=== PATIENT | male | born 1965 | race Caucasian/White ===

== ENCOUNTER 2018-02-02 16:39 | Inpatient (IN) | payer OTHER ==
[2018-02-02 17:20] VITALS: BMI 20.5
[2018-02-02] MEDS ORDERED: MELATONIN 5 MG TABLETS PO PRN (22:00)
--- NOTE | 2018-02-02 22:49 | HP ---
CIWA Score - CIWA Score Nausea/Vomitin Muscle Tremors: 5 Anxiety: 5 Agitation: 5 Paroxysmal Sweats: 3 Orientation: 1-Uncertain about Date Tacttile Disturbances: 3-Moderate Itch/Numb/Burn Auditory Disturbances: 0-None Visual Disturbances: 0-None Headache: 4-Moderately Severe CIWA-Ar Total Score: 29 Admission ROS BHS - HPI Chief Complaint: I CANT DO IT ANYMORE. I NEED HELP Allergies/Adverse Reactions: Allergies Allergy/AdvReac Type Severity Reaction Status Date / Time No Known Allergies Allergy Verified 02/02/18 22:43 History of Present Illness: 52 Y.O. MALE WITH LONG HX/O POLYSUBSTANCE ABUSE HERE FOR ALCOHOL DETOX. REPORTS LAST DETOX [facility]. REFERRED BY [facility] AFTER PRESENTING THERE FOR C/O WITHDRAWAL SX'S. LONGEST CLEAN TIME 6 MONTHS. STATES ON RX TRAMADOL BUT HAS NOT TAKEN IN 5 DAYS Exam Limitations: No Limitations - Ebola screening Have you traveled outside of the country in the last 21 days: No Have you had contact with anyone from an Ebola affected area: No Have you been sick,other than usual withdrawal symptoms: No Do you have a fever: No - Review of Systems Constitutional: Chills, Loss of Appetite, Malaise, Night Sweats, Changes in sleep, Unintentional Wgt. Loss EENT: reports: Dental Problems (POOR DENTITION) Respiratory: reports: Cough Cardiac: reports: No Symptoms Reported GI: reports: Poor Appetite, Poor Fluid Intake, Abdominal cramping : reports: Other (HESITANCY) Musculoskeletal: reports: Back Pain, Joint Pain Integumentary: reports: No Symptoms Reported Neuro: reports: Headache, Tremors Endocrine: reports: No Symptoms Reported Hematology: reports: No Symptoms Reported Psychiatric: reports: Anxious, Depressed, other (ON WELLBUTRIN AND KLONOPINS) Other Systems: Reviewed and Negative Patient History - Patient Medical History Hx Anemia: No Hx Asthma: No Hx Chronic Obstructive Pulmonary Disease (COPD): Yes (EMPHYSEMA) Hx Cancer: No Hx Cardiac Disorders: No Hx Congestive Heart Failure: No Hx Hypertension: No Hx Hypercholesterolemia: No Hx Pacemaker: No HX Cerebrovascular Accident: No Hx Seizures: No Hx Dementia: No Hx Diabetes: No Hx Gastrointestinal Disorders: No Hx Liver Disease: No Hx Genitourinary Disorders: No Hx Sexually Transmitted Disorders: No Hx Renal Disease (ESRD): No Hx Thyroid Disease: No Hx Human Immunodeficiency Virus (HIV): No Hx Hepatitis C: No Hx Depression: Yes Hx Suicide Attempt: No Hx Bipolar Disorder: Yes Hx Schizophrenia: No Other Medical History: ANXIETY - Patient Surgical History Other Surgical History: TONSILLECTOMY Anesthesia Reaction: No - PPD History Previous Implant?: Yes Documented Results: Negative w/o proof Implanted On Prior R Admission?: No PPD to be Administered?: Yes - Smoking Cessation Smoking history: Current every day smoker Have you smoked in the past 12 months: Yes Aproximately how many cigarettes per day: 20 Cigars Per Day: 0 Hx Chewing Tobacco Use: No Initiated information on smoking cessation: Yes 'Breaking Loose' booklet given: 02/02/18 - Substance & Tx. History Hx Alcohol Use: Yes Hx Substance Use: Yes Substance Use Type: Alcohol, Heroin, Prescribed (KLONOPINS), Tranquilizers ( CRYSTAL METH) Hx Substance Use Treatment: Yes ([facility]) - Substances Abused RUM Route: Oral Frequency: Daily Amount used: 1 PINT Age of first use: 11 Date of Last Use: 02/02/18 THC Route: Smoking Frequency: Daily Amount used: $23/ WEEK Age of first use: 12 Date of Last Use: 02/02/18 KLONOPINS Route: Oral Frequency: Daily Amount used: 2MG Age of first use: 46 Date of Last Use: 01/02/18 Admission Physical Exam S - Vital Signs Vital Signs: Vital Signs - 24 hr 02/02/18 17:18 Temperature 99.6 F Pulse Rate 98 H Respiratory 18 Rate Blood Pressure 142/70 - Physical General Appearance: Yes: Appropriately Dressed, Moderate Distress, Thin, Tremorous, Sweating (FLUSHED), Anxious HEENTM: Yes: EOMI, Normocephalic, Normal Voice (TALKATIVE, RAMBLING), [place], Pharynx Normal, Other (MISSING TEETH; POOR DENTITION) Respiratory: Yes: Chest Non-Tender, Lungs Clear, Decreased Breath Sounds, No Respiratory Distress Neck: Yes: No masses,lesions,Nodules, Supple, Trachea in good position Breast: Yes: Breast Exam Deferred Cardiology: Yes: Regular Rhythm, S1, S2, Tachycardia Abdominal: Yes: Normal Bowel Sounds, Non Tender, Flat, Soft Genitourinary: Yes: Other (NO COMPLAINTS) Back: Yes: Normal Inspection Musculoskeletal: Yes: full range of Motion, Gait Steady Extremities: Yes: Normal Capillary Refill, Normal Range of Motion, Non-Tender, Tremors Neurological: Yes: Fully Oriented, Alert, Motor Strength 5/5 Integumentary: Yes: Dry, Warm, Other (FLUSHED) Lymphatic: Yes: Within Normal Limits - Diagnostic (1) Alcohol dependence with uncomplicated withdrawal Current Visit: Yes Status: Chronic (2) Benzodiazepine withdrawal without complication Current Visit: Yes Status: Chronic (3) Cannabis abuse, uncomplicated Current Visit: Yes Status: Chronic (4) Nicotine dependence Current Visit: Yes Status: Chronic Qualifiers: Nicotine product type: cigarettes Substance use status: uncomplicated Qualified Code(s): F17.210 - Nicotine dependence, cigarettes, uncomplicated (5) COPD (chronic obstructive pulmonary disease) with emphysema Current Visit: Yes Status: Chronic Qualifiers: Emphysema type: unspecified Qualified Code(s): J43.9 - Emphysema, unspecified Cleared for Admission [facility] - Detox or Rehab [facility] Level of Care: Medically Managed Detox Regimen/Protocol: Librium Claeared for Rehab Admission: No S Breath Alcohol Content Breath Alcohol Content: 0 Urine Drug Screen - Results Drug Screen Negative: No Urine Drug Screen Results: THC-Marijuana, AMP-Amphetamines, MET-Methamphetamine , BZO-Benzodiazepines
[2018-02-02] MEDS ORDERED: hydrOXYzine PAMOATE 50 MG CAPSULE (FP) PO PRN (23:00)
[2018-02-02] MEDS ORDERED: NICOTINE POLACRILEX 2 MG GUM BC PRN (23:00)
[2018-02-02] MEDS ORDERED: MENTHOL/PHENOL 1 EACH UD MM PRN (23:00)
[2018-02-02] MEDS ORDERED: guaiFENesin/D-METHORPHAN HB 10 ML UNIT-DOSE CUPS PO PRN (23:00)
[2018-02-02] MEDS ORDERED: MAG HYDROX/AL HYDROX/SIMETH 30 ML UNIT-DOSE CUP PO PRN (23:00)
[2018-02-02] MEDS ORDERED: MAGNESIUM CITRATE 300 ML BOTTLE PO PRN (23:00)
[2018-02-02] MEDS ORDERED: MAGNESIUM HYDROX 2400MG/30ML ORAL SUSPENSION 30 ML CUP PO PRN (23:00)
[2018-02-02] MEDS ORDERED: ACETAMINOPHEN 325 MG TABLET (FP) PO PRN (23:00)
[2018-02-02] MEDS ORDERED: LOPERAMIDE HCL 2 MG CAPSULE PO PRN (23:00)
[2018-02-02] MEDS ORDERED: ALBUTEROL SO4 2.5/IPRATROPIUM 0.5 INH SOL 3 ML VIAL.NEB. NEB PRN (23:21)
[2018-02-03] MEDS: IBUPROFEN 400 MG TABLET (FP) PO PRN ×3 (00:35→17:57)
[2018-02-03] MEDS: chlordiazePOXIDE HCL 25 MG CAPSULE PO SCH ×5 (00:35→22:22)
[2018-02-03 10:03] LABS: HEMATOCRIT 38.6 % (35.4-49); HEMOGLOBIN 12.9 GM/dL (11.7-16.9); MCH 31.3 pg (25.7-33.7); MCHC 33.5 g/dl (32.0-35.9); MEAN CELL VOLUME 93.4 fl (80-96); MEAN PLT VOLUME 8.2 fl (7.5-11.1); PLATELET COUNT 224 K/MM3 (134-434); RBC 4.13 M/mm3 (4.00-5.60); RDW 14.2 % (11.9-15.9); WHITE BLOOD COUNT 7.8 K/mm3 (4.0-10.0)
[2018-02-03 10:14] LABS: CHLORIDE 111 mmol/L (98-107); POTASSIUM 3.3 mmol/L (3.5-5.1); SODIUM 141 mmol/L (136-145)
--- NOTE | 2018-02-03 10:14 | EKG ---
Test Reason : Blood Pressure : / mmHG Vent. Rate : 091 BPM Atrial Rate : 091 BPM P-R Int : 130 ms QRS Dur : 088 ms QT Int : 362 ms P-R-T Axes : 034 060 064 degrees QTc Int : 445 ms NORMAL SINUS RHYTHM NORMAL ECG NO PREVIOUS ECGS AVAILABLE Confirmed by Mike Cosme MD ([id number]) on 02/03/2018 10:14:12 AM Referred By: Confirmed By:Mike Cosme MD
[2018-02-03] MEDS: PRENATAL VITAMINS W/ FOLIC ACID TABLET (FP) PO SCH (10:15)
[2018-02-03] MEDS: NICOTINE 21 MG/24 HOURS TOPICAL PATCH TD SCH (10:15)
[2018-02-03] MEDS: P-EPHED 60MG/TRIPROLIDI 2.5MG TABLET PO PRN (10:19)
[2018-02-03 10:37] LABS: ALBUMIN 3.2 g/dl (3.4-5.0); ALK PHOS 66 U/L (45-117); ANION GAP 7 (8-16); BILIRUBIN,TOTAL 0.2 mg/dL (0.2-1.0); BLOOD UREA NITROGEN 10 mg/dL (7-18); CALCIUM 7.9 mg/dL (8.5-10.1); CO2 23 mmol/L (21-32); CREATININE 0.6 mg/dL (0.7-1.3); GLUCOSE,RANDOM 117 mg/dL (74-106); SGOT/AST 17 U/L (15-37); SGPT/ALT 12 U/L (12-78); TOT PROT 5.9 g/dl (6.4-8.2)
[2018-02-03] MEDS ORDERED: POTASSIUM CHLORIDE TABS 20 MEQ TABLET.ER (FP) PO ONE (11:15)
[2018-02-03] MEDS: CYCLOBENZAPRINE HCL 10 MG TABLET (FP) PO PRN (12:18)
--- NOTE | 2018-02-03 13:19 | PN ---
S CIWA - CIWA Score Nausea/Vomitin Muscle Tremors: 3 Anxiety: 3 Agitation: 3 Paroxysmal Sweats: 1-Minimal Palms Moist Orientation: 0-Oriented Tacttile Disturbances: 1-Very Mild Itch/Numbness Auditory Disturbances: 1-Very Mild Visual Disturbances: 0-None Headache: 2-Mild CIWA-Ar Total Score: 17 BHS Progress Note (SOAP) Subjective: ALERT,IRRITABLE,ANXIOUS,INTERRUPTED SLEEP,TREMOR,[place] IN THE BODY AND BACK Objective: 02/03/18 13:17 Vital Signs Temperature 98.1 F 02/03/18 10:00 Pulse Rate 101 H 02/03/18 10:00 Respiratory Rate 18 02/03/18 10:00 Blood Pressure 144/91 02/03/18 10:00 O2 Sat by Pulse Oximetry (%) EKG NSR,NORMAL ECG Laboratory Last Values WBC 7.8 K/mm3 (4.0-10.0) 02/03/18 08:00 RBC 4.13 M/mm3 (4.00-5.60) 02/03/18 08:00 Hgb 12.9 GM/dL (11.7-16.9) 02/03/18 08:00 Hct 38.6 % (35.4-49) 02/03/18 08:00 MCV 93.4 fl (80-96) 02/03/18 08:00 MCH 31.3 pg (25.7-33.7) 02/03/18 08:00 MCHC 33.5 g/dl (32.0-35.9) 02/03/18 08:00 RDW 14.2 % (11.9-15.9) 02/03/18 08:00 Plt Count 224 K/MM3 (134-434) 02/03/18 08:00 MPV 8.2 fl (7.5-11.1) 02/03/18 08:00 Sodium 141 mmol/L (136-145) 02/03/18 08:00 Potassium 3.3 mmol/L (3.5-5.1) L 02/03/18 08:00 Chloride 111 mmol/L (98-107) H 02/03/18 08:00 Carbon Dioxide 23 mmol/L (21-32) 02/03/18 08:00 Anion Gap 7 (8-16) L 02/03/18 08:00 BUN 10 mg/dL (7-18) 02/03/18 08:00 Creatinine 0.6 mg/dL (0.7-1.3) L 02/03/18 08:00 Creat Clearance w eGFR > 60 (>60) 02/03/18 08:00 Random Glucose 117 mg/dL (74-106) H 02/03/18 08:00 Calcium 7.9 mg/dL (8.5-10.1) L 02/03/18 08:00 Total Bilirubin 0.2 mg/dL (0.2-1.0) 02/03/18 08:00 AST 17 U/L (15-37) 02/03/18 08:00 ALT 12 U/L (12-78) 02/03/18 08:00 Alkaline Phosphatase 66 U/L (45-117) 02/03/18 08:00 Total Protein 5.9 g/dl (6.4-8.2) L 02/03/18 08:00 Albumin 3.2 g/dl (3.4-5.0) L 02/03/18 08:00 Assessment: 02/03/18 13:18 WITHDRAWAL SYMPTOM Plan: CONTINUE DETOX,K DUR 20 MEQ PO NOW THEN DAILY FOR HYPOKALEMIA
--- NOTE | 2018-02-03 14:09 | CONSULT ---
[facility] Psychiatric Consult - Data Date of interview: 02/03/18 Admission source: [facility] Identifying data: Glass Cutter approached this patient at bedside for psychiatric evaluation as requested.Mr Palmer declines." I am tired.Can you come back tomorrow for this ? Please I need my rest." Patient is polite but firm about his decision to defer the psychiatric interview.Examination deferred.Nursing staff is made aware.
[2018-02-03] MEDS: THIAMINE HCL 100 MG TABLET (FP) PO SCH (22:22)
[2018-02-04] MEDS: chlordiazePOXIDE HCL 25 MG CAPSULE PO SCH ×3 (05:14→17:14)
[2018-02-04] MEDS: CYCLOBENZAPRINE HCL 10 MG TABLET (FP) PO PRN (05:17)
[2018-02-04] MEDS: IBUPROFEN 400 MG TABLET (FP) PO PRN ×2 (05:18→17:14)
[2018-02-04] MEDS: P-EPHED 60MG/TRIPROLIDI 2.5MG TABLET PO PRN (05:18)
[2018-02-04] MEDS: POTASSIUM CHLORIDE TABS 20 MEQ TABLET.ER (FP) PO SCH (10:47)
[2018-02-04] MEDS: PRENATAL VITAMINS W/ FOLIC ACID TABLET (FP) PO SCH (10:47)
[2018-02-04] MEDS: NICOTINE 21 MG/24 HOURS TOPICAL PATCH TD SCH (10:48)
--- NOTE | 2018-02-04 12:04 | PN ---
[facility] CIWA - CIWA Score Nausea/Vomitin-Mild Nausea/No Vomiting Muscle Tremors: 4-Moderate,w/Arms Extend Anxiety: 4-Mod. Anxious/Guarded Agitation: 4-Moderately Restless Paroxysmal Sweats: 1-Minimal Palms Moist Orientation: 0-Oriented Tacttile Disturbances: 0-None Auditory Disturbances: 0-None Visual Disturbances: 0-None Headache: 0-None Present CIWA-Ar Total Score: 14 BHS Progress Note (SOAP) Subjective: sweat tremor anxiety restlessness Objective: 02/04/18 12:05 Vital Signs Temperature 97.9 F 02/04/18 09:35 Pulse Rate 91 H 02/04/18 09:35 Respiratory Rate 20 02/04/18 09:35 Blood Pressure 154/86 02/04/18 09:35 O2 Sat by Pulse Oximetry (%) Laboratory Last Values WBC 7.8 K/mm3 (4.0-10.0) 02/03/18 08:00 RBC 4.13 M/mm3 (4.00-5.60) 02/03/18 08:00 Hgb 12.9 GM/dL (11.7-16.9) 02/03/18 08:00 Hct 38.6 % (35.4-49) 02/03/18 08:00 MCV 93.4 fl (80-96) 02/03/18 08:00 MCH 31.3 pg (25.7-33.7) 02/03/18 08:00 MCHC 33.5 g/dl (32.0-35.9) 02/03/18 08:00 RDW 14.2 % (11.9-15.9) 02/03/18 08:00 Plt Count 224 K/MM3 (134-434) 02/03/18 08:00 MPV 8.2 fl (7.5-11.1) 02/03/18 08:00 Sodium 141 mmol/L (136-145) 02/03/18 08:00 Potassium 3.3 mmol/L (3.5-5.1) L 02/03/18 08:00 Chloride 111 mmol/L (98-107) H 02/03/18 08:00 Carbon Dioxide 23 mmol/L (21-32) 02/03/18 08:00 Anion Gap 7 (8-16) L 02/03/18 08:00 BUN 10 mg/dL (7-18) 02/03/18 08:00 Creatinine 0.6 mg/dL (0.7-1.3) L 02/03/18 08:00 Creat Clearance w eGFR > 60 (>60) 02/03/18 08:00 Random Glucose 117 mg/dL (74-106) H 02/03/18 08:00 Calcium 7.9 mg/dL (8.5-10.1) L 02/03/18 08:00 Total Bilirubin 0.2 mg/dL (0.2-1.0) 02/03/18 08:00 AST 17 U/L (15-37) 02/03/18 08:00 ALT 12 U/L (12-78) 02/03/18 08:00 Alkaline Phosphatase 66 U/L (45-117) 02/03/18 08:00 Total Protein 5.9 g/dl (6.4-8.2) L 02/03/18 08:00 Albumin 3.2 g/dl (3.4-5.0) L 02/03/18 08:00 lab noted 02/04/18 12:07 continue K+ supplement Assessment: 02/04/18 12:07 withdrawal sx Plan: continue detox
[2018-02-04] MEDS ORDERED: chlordiazePOXIDE HCL 25 MG CAPSULE PO ONE (14:00)
[2018-02-04] MEDS: chlordiazePOXIDE HCL 25 MG CAPSULE PO PRN (19:26)
[2018-02-04] MEDS ORDERED: POTASSIUM CHLORIDE TABS 20 MEQ TABLET.ER (FP) PO SCH (22:00)
[2018-02-04] MEDS: THIAMINE HCL 100 MG TABLET (FP) PO SCH (22:33)
[2018-02-04] MEDS: chlordiazePOXIDE 5 MG CAPSULE PO SCH (22:34)
[2018-02-05 01:48] LABS: URINE APPEARANCE CLOUDY; URINE BILIRUBIN NEGATIVE (<2.0 mg/dL); URINE BLOOD NEGATIVE (NEGATIVE); URINE COLOR YELLOW; URINE GLUCOSE (UA) NEGATIVE (NEGATIVE); URINE KETONE NEGATIVE (NEGATIVE); URINE LEUK ESTERASE NEGATIVE (NEGATIVE); URINE NITRITE NEGATIVE (NEGATIVE); URINE PROTEIN NEGATIVE (NEGATIVE); URINE UROBILINOGEN NEGATIVE mg/dL (0.2-1.0)
[2018-02-05] MEDS: chlordiazePOXIDE 5 MG CAPSULE PO SCH ×3 (05:29→17:07)
--- NOTE | 2018-02-05 09:05 | PN ---
BHS Progress Note (SOAP) Subjective: nausea, sweats, interrupted sleep, anxiety, tremors Objective: 02/05/18 09:05 Vital Signs - 24 hr 02/04/18 02/04/18 02/04/18 09:35 18:38 23:01 Temperature 97.9 F 98.1 F 98.8 F Pulse Rate 91 H 106 H 106 H Respiratory 20 20 18 Rate Blood Pressure 154/86 132/87 132/75 02/05/18 02/05/18 02/05/18 00:30 03:30 06:20 Temperature 97.7 F Pulse Rate 77 Respiratory 18 18 18 Rate Blood Pressure 145/85 Laboratory Tests 02/03/18 02/03/18 02/04/18 08:00 08:00 22:23 WBC 7.8 RBC 4.13 Hgb 12.9 Hct 38.6 MCV 93.4 MCH 31.3 MCHC 33.5 RDW 14.2 Plt Count 224 MPV 8.2 Sodium 141 Potassium 3.3 L Chloride 111 H Carbon Dioxide 23 Anion Gap 7 L BUN 10 Creatinine 0.6 L Creat Clearance w eGFR > 60 Random Glucose 117 H Calcium 7.9 L Total Bilirubin 0.2 AST 17 ALT 12 Alkaline Phosphatase 66 Total Protein 5.9 L Albumin 3.2 L Urine Color Yellow Urine Appearance Cloudy Urine pH 7.0 Ur Specific [place] 1.027 Urine Protein Negative Urine Glucose (UA) Negative Urine Ketones Negative Urine Blood Negative Urine Nitrite Negative Urine Bilirubin Negative Urine Urobilinogen Negative Ur Leukocyte Esterase Negative hypoikalemia, hypoalbuminemia Assessment: 02/05/18 09:05 withdrawal sx, - cont detox, fluids, malnutirtion 2/2 substance use, fluids, ensure vitamins ordered
[2018-02-05] MEDS: POTASSIUM CHLORIDE TABS 20 MEQ TABLET.ER (FP) PO SCH (10:48)
[2018-02-05] MEDS: PRENATAL VITAMINS W/ FOLIC ACID TABLET (FP) PO SCH (10:48)
[2018-02-05] MEDS: NICOTINE 21 MG/24 HOURS TOPICAL PATCH TD SCH (10:50)
--- NOTE | 2018-02-05 10:59 | CONSULT ---
[facility] Psychiatric Consult - Data Date of interview: 02/05/18 Admission source: [facility] Identifying data: This is 52 years old male, single, unemployed, living with roommate, on SSI, with no psychiatric hospitalization history, here for detox intoxicated with: Alcohol, Amphetamins, Cannabis, Benzodiazepins . Substance Abuse History: Urine Drug Screen Results: THC-Marijuana, AMP- Amphetamines, MET-Methamphetamine, BZO-Benzodiazepines. - Smoking Cessation. Smoking history: Current every day smoker. Have you smoked in the past 12 months: Yes. Aproximately how many cigarettes per day: 20. Cigars Per Day: 0. Hx Chewing Tobacco Use: No. Initiated information on smoking cessation: Yes. 'Breaking Loose' booklet given: 02/02/18. - Substance & Tx. History. Hx Alcohol Use: Yes. Hx Substance Use: Yes. Substance Use Type: Alcohol, Heroin, Prescribed (KLONOPINS), Tranquilizers (CRYSTAL METH). Hx Substance Use Treatment: Yes ([facility]). - Substances Abused. RUM. Route: Oral. Frequency: Daily. Amount used: 1 PINT. Age of first use: 11. Date of Last Use : 02/02/18. THC. Route: Smoking. Frequency: Daily. Amount used: $23/ WEEK. Age of first use: 12. Date of Last Use: 02/02/18. KLONOPINS. Route : Oral. Frequency: Daily. Amount used: 2MG. Age of first use: 46. Date of Last Use: 01/02/18 Medical History: COPD Psychiatric History: Patient reports history of depression, reports taking prior to admission: Wellbutrin XL 300mg poqd with good response. Denies suicidal, homicidal history Physical/Sexual Abuse/Trauma History: Denies Additional Comment: Urine Drug Screen Results: THC-Marijuana, AMP-Amphetamines, MET-Methamphetamine, BZO-Benzodiazepines. Wellbutrin XL 300mg poqd Mental Status Exam - Mental Status Exam Alert and Oriented to: Place, Person Cognitive Function: Fair Patient Appearance: Unkempt Mood: Apprehensive Affect: Mood Congruent Patient Behavior: Cooperative Speech Pattern: Appropriate Voice Loudness: Normal Thought Process: Goal Oriented Thought Disorder: Being Controlled Hallucinations: Denies Suicidal Ideation: Denies Homicidal Ideation: Denies Insight/Judgement: Fair Sleep: Fair Appetite: Weight loss Muscle strength/Tone: Normal Gait/Station: Normal Additional Comments: Wellbutrin XL 300mg poqd Psychiatric Findings - Problem List ([place] 1, 2,3) (1) Drug-induced mood disorder Current Visit: Yes Status: Acute (2) Alcohol dependence with uncomplicated withdrawal Current Visit: Yes Status: Chronic (3) Benzodiazepine withdrawal without complication Current Visit: Yes Status: Chronic (4) Cannabis abuse, uncomplicated Current Visit: Yes Status: Chronic (5) Nicotine dependence Current Visit: Yes Status: Chronic Qualifiers: Nicotine product type: cigarettes Substance use status: uncomplicated Qualified Code(s): F17.210 - Nicotine dependence, cigarettes, uncomplicated - Initial Treatment Plan Initial Treatment Plan: Wellbutrin XL 300mg poqd
[2018-02-05] MEDS: chlordiazePOXIDE HCL 25 MG CAPSULE PO PRN (13:15)
[2018-02-05] MEDS: CYCLOBENZAPRINE HCL 10 MG TABLET (FP) PO PRN (13:15)
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
[2018-02-05] MEDS: IBUPROFEN 400 MG TABLET (FP) PO PRN (15:11)
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
[2018-02-05 17:33] VITALS: BP 141/90; PULSE 114; TEMP 98.4
--- NOTE | 2018-02-05 19:00 | DS ---
[facility] Detox Discharge Summary Admission Date: 02/02/18 Discharge Date: 02/05/18 - History Present History: Alcohol Dependence Additional Comments: Pt. requested to leave AMA. He states he plans to go home and will obtain linkage to rehab on his own. He is alert and oriented x 3; self-directing with no withdrawal symptoms noted or reported. He stated he did not need any medication refills. Pertinent Past History: Laboratory Last Values WBC 7.8 K/mm3 (4.0-10.0) 02/03/18 08:00 RBC 4.13 M/mm3 (4.00-5.60) 02/03/18 08:00 Hgb 12.9 GM/dL (11.7-16.9) 02/03/18 08:00 Hct 38.6 % (35.4-49) 02/03/18 08:00 MCV 93.4 fl (80-96) 02/03/18 08:00 MCH 31.3 pg (25.7-33.7) 02/03/18 08:00 MCHC 33.5 g/dl (32.0-35.9) 02/03/18 08:00 RDW 14.2 % (11.9-15.9) 02/03/18 08:00 Plt Count 224 K/MM3 (134-434) 02/03/18 08:00 MPV 8.2 fl (7.5-11.1) 02/03/18 08:00 Sodium 141 mmol/L (136-145) 02/03/18 08:00 Potassium 3.3 mmol/L (3.5-5.1) L 02/03/18 08:00 Chloride 111 mmol/L (98-107) H 02/03/18 08:00 Carbon Dioxide 23 mmol/L (21-32) 02/03/18 08:00 Anion Gap 7 (8-16) L 02/03/18 08:00 BUN 10 mg/dL (7-18) 02/03/18 08:00 Creatinine 0.6 mg/dL (0.7-1.3) L 02/03/18 08:00 Creat Clearance w eGFR > 60 (>60) 02/03/18 08:00 Random Glucose 117 mg/dL (74-106) H 02/03/18 08:00 Calcium 7.9 mg/dL (8.5-10.1) L 02/03/18 08:00 Total Bilirubin 0.2 mg/dL (0.2-1.0) 02/03/18 08:00 AST 17 U/L (15-37) 02/03/18 08:00 ALT 12 U/L (12-78) 02/03/18 08:00 Alkaline Phosphatase 66 U/L (45-117) 02/03/18 08:00 Total Protein 5.9 g/dl (6.4-8.2) L 02/03/18 08:00 Albumin 3.2 g/dl (3.4-5.0) L 02/03/18 08:00 Urine Color Yellow 02/04/18 22:23 Urine Appearance Cloudy 02/04/18 22:23 Urine pH 7.0 (5.0-8.0) 02/04/18 22:23 Ur Specific [place] 1.027 (1.001-1.035) 02/04/18 22:23 Urine Protein Negative (NEGATIVE) 02/04/18 22:23 Urine Glucose (UA) Negative (NEGATIVE) 02/04/18 22:23 Urine Ketones Negative (NEGATIVE) 02/04/18 22:23 Urine Blood Negative (NEGATIVE) 02/04/18 22:23 Urine Nitrite Negative (NEGATIVE) 02/04/18 22:23 Urine Bilirubin Negative (<2.0 mg/dL) 02/04/18 22:23 Urine Urobilinogen Negative mg/dL (0.2-1.0) 02/04/18 22:23 Ur Leukocyte Esterase Negative (NEGATIVE) 02/04/18 22:23 RPR Titer Nonreactive (NONREACTIVE) 02/03/18 08:00 Labs noted - Physical Exam Results Vital Signs: Vital Signs Temperature 98.4 F 02/05/18 17:32 Pulse Rate 114 H 02/05/18 17:32 Respiratory Rate 20 02/05/18 17:32 Blood Pressure 141/90 02/05/18 17:32 O2 Sat by Pulse Oximetry (%) - Medication Discharge Medications: Ambulatory Orders Bupropion HCl [Wellbutrin Xl -] 300 mg PO DAILY 02/02/18 Tiotropium [place] [Spiriva] 1 inh PO DAILY #1 cap.w.dev 02/05/18 - Diagnosis (1) Alcohol dependence with uncomplicated withdrawal Current Visit: Yes Status: Chronic (2) Benzodiazepine withdrawal without complication Current Visit: Yes Status: Chronic (3) COPD (chronic obstructive pulmonary disease) with emphysema Current Visit: Yes Status: Chronic Qualifiers: Emphysema type: unspecified Qualified Code(s): J43.9 - Emphysema, unspecified (4) Cannabis abuse, uncomplicated Current Visit: Yes Status: Chronic (5) Nicotine dependence Current Visit: Yes Status: Chronic Qualifiers: Nicotine product type: cigarettes Substance use status: uncomplicated Qualified Code(s): F17.210 - Nicotine dependence, cigarettes, uncomplicated - AMA Did Patient Leave Against Medical Advice: Yes (Pt. requested to leave AMA. )
[2018-02-05] MEDS ORDERED: chlordiazePOXIDE HCL 10 MG CAPSULE PO SCH (23:00)
== END 2018-02-05 18:49 | disposition home or self-care (01) | DRG 775 ==
LOC: YASAS 16:39 → Y6N 21:16 → Y3N 02-05 14:03
PROVIDERS: ADMIT Internal Medicine; ATTEND Internal Medicine
PROC: HZ2ZZZZ Detoxification Services for Substance Abuse Treatment (ICD-10-PCS; principal; 2018-02-02)
DX: F10.230 Alcohol dependence with withdrawal, uncomplicated (principal); F13.230 Sedative, hypnotic or anxiolytic dependence with withdrawal, uncomplicated; F12.10 Cannabis abuse, uncomplicated; F17.210 Nicotine dependence, cigarettes, uncomplicated; F19.24 Other psychoactive substance dependence with psychoactive substance-induced mood disorder; F31.9 Bipolar disorder, unspecified; F41.9 Anxiety disorder, unspecified; J43.9 Emphysema, unspecified
CPT/HCPCS: 36415; 80053; 81003; 85027; 86593; 93005; 93010